=== PATIENT | female | born 1990 | race Hispanic/Latino ===

== ENCOUNTER 2024-02-14 22:47 | Emergency (ER) | payer OTHER ==
[~2024-02-14] VITALS: Ht 162.6 cm; Wt 69.9 kg
[2024-02-14 23:07] VITALS: PULSE 88; RESP 16; TEMP 98.4; O2SAT 99
[2024-02-14] MEDS ORDERED: ULTRAM 50MG50 MG PO (23:56)
== END 2024-02-15 | disposition home or self-care (01) ==
LOC: ER 22:57
DX: S01.81XA Laceration without foreign body of other part of head, initial encounter (principal); W01.198A Fall on same level from slipping, tripping and stumbling with subsequent striking against other object, initial encounter; Y93.E1 Activity, personal bathing and showering; Y92.89 Other specified places as the place of occurrence of the external cause
CPT/HCPCS: 70450; 99284